=== PATIENT | male | born 2000 | race Caucasian/White ===

== ENCOUNTER 2021-03-02 08:00 | Outpatient (CLI) | payer OTHER | END 2021-03-02 23:59 | LOC: LAB 08:00 | PROVIDERS: ATTEND Physician Assistant | DX: R51.9 Headache, unspecified (principal); J06.9 Acute upper respiratory infection, unspecified; Z20.822 Contact with and (suspected) exposure to COVID-19 ==

== ENCOUNTER 2023-07-31 22:28 | Emergency (ER) | payer OTHER ==
[2023-07-31 22:50] VITALS: BP 160/102; O2SAT 100
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
[2023-07-31] MEDS: cephALEXin 250 MG CAPSULE PO STA (23:48)
== END 2023-08-01 00:03 | disposition home or self-care (01) ==
LOC: ED 22:28
DX: L02.01 Cutaneous abscess of face (principal); F17.200 Nicotine dependence, unspecified, uncomplicated
CPT/HCPCS: 99283; A9270